=== PATIENT | male | born 1940 ===

== ENCOUNTER 2025-09-18 07:06 | Outpatient (CLI) | payer OTHER ==
[2025-09-18 08:31] LABS: T4 FREE 0.98 NG/ML (0.76-1.46); TSH 2.49 uIU/mL (0.358-3.74)
== END 2025-09-18 07:13 | disposition home or self-care (01) ==
LOC: LAB 07:06
PROVIDERS: ATTEND Specialist
DX: E05.80 Other thyrotoxicosis without thyrotoxic crisis or storm (principal); E03.9 Hypothyroidism, unspecified